=== PATIENT | female | born 2000 | race African-American/Black ===

== ENCOUNTER 2024-04-09 10:43 | Observation (INO) | payer OTHER, SELFPAY ==
[2024-04-09] VITALS (45 sets, daily range): BP systolic 90–119; BP diastolic 51–77; PULSE 77–103; O2SAT 98–100; BMI 31.1
[2024-04-09] MEDS: Please add drug allergy info to patient profile. XX (11:14)
[2024-04-09] MEDS: TERBUTALINE SULFATE 1 MG/ML VIAL 0.25 MG SUB-Q (11:25)
[2024-04-09] MEDS: LACTATED RINGERS 1,000 ML 999 ML IV CONT (11:26)
[2024-04-09 13:03] LABS: Add Urine Microscopic? NO; Appearance Urine Clear (Clear); Bilirubin Urine Negative (Negative); Blood Urine Negative (Negative); Color Urine Yellow (Yellow); Glucose Urine UA Negative (Negative); Ketones Urine 3+ mg/dL (Negative); Leukocyte Esterase Ur Negative LEU/UL (Negative); Nitrate Urine Negative (Negative); Protein Urine Negative (Negative); Specific Grav Ur 1.015 (1.001-1.035); pH Urine 6.5 (5.0-9.0)
--- NOTE | 2024-04-09 13:22 | PC.NURSE ---
Addendum entered by Desire Schreiber RN 04/09/24 13:40: RN also reported lab results to OB. Order changed from LR to [id number]. Original Note: 1320: RN phoned Dr. Norris to inform him of recent SVE, contraction pattern, and FHTs. Orders to give another liter bolus of LR, and 10 of Procardia.
[2024-04-09] MEDS: ACETAMINOPHEN 500 MG TABLET 1000 MG PO (13:34)
[2024-04-09] MEDS: DEXTROSE 5%/LACTATED RINGERS 1,000 ML 999 ML (13:35)
[2024-04-09] MEDS: NIFEdipine 10 MG CAPSULE PO (13:36)
--- NOTE | 2024-04-09 15:22 | OBADM ---
This patient, Delmis Carlson, admitted to the OB room Labor/Delivery/Recovery 119 for observation. Patient/family oriented to hospital policies and general routines including ID bracelet, bed and alarms, visiting hours, pain management, procedures, bathroom and other care routines, personal items, smoking policy, room service/diet, and visiting hours. Patient/Family are encouraged to report perceived risks to care and to ask questions if they do not understand what they are told or what they should do.
--- NOTE | 2024-04-09 16:21 | PC.NURSE ---
1512: RN phoned Dr. Norris to inform him that patient's contractions pattern has decreased, patient states she feels better and is rating her pain a 0/10. Orders to discharge patient home with instructions on when to return to the hospital.
--- NOTE | 2024-04-09 16:24 | PC.NURSE ---
1107: RN informed Dr. Norris of contraction pattern, pain of 8 out of 10, recent SVE and FHTs. Orders to give bolus of LR and give Terbutaline.
--- NOTE | 2024-05-01 20:05 | P.PNOB_ITS ---
OB - Triage/Final Diagnosis Visit Information Comments/Additional reasons for admission: I have assessed the risk for this patient, Delmis Carlson, and determined that she would benefit from observation care. Evaluation Laboratory results: Laboratory Tests 04/09/24 04/09/24 11:23 12:48 Urine Color Yellow Urine Appearance Clear Urine pH 6.5 Ur Specific [place] 1.015 Urine Protein Negative Urine Glucose (UA) Negative Urine Ketones 3+ H Ur Blood (Man) Negative Urine Nitrate Negative Urine Bilirubin Negative Urine Urobilinogen 1.0 Leukocyte Esterase Rfl Negative Blood Type O Positive Antibody Screen Negative Final Diagnosis (1) False labor: Code(s): O47.9 - False labor, unspecified Status: Acute
== END 2024-04-09 15:30 | disposition home or self-care (01) ==
PROVIDERS: Admitting Provider Obstetrics & Gynecology; Visit Provider Obstetrics & Gynecology
DX: O47.9 False labor, unspecified (principal); Z3A.00 Weeks of gestation of pregnancy not specified
CPT/HCPCS: 36415; 81003; 86850; 86900; 86901; 96372; 96374; A9270; G0378; G0379; J3105; J7120; J7121

== ENCOUNTER 2024-04-10 07:07 | Inpatient (IN) | payer OTHER, SELFPAY ==
[2024-04-10] VITALS (51 sets, daily range): BP systolic 81–136; BP diastolic 42–86; PULSE 62–99; RESP 13–23; TEMP 36.2–36.8; O2SAT 91–100; BMI 31.4
--- NOTE | 2024-04-10 07:07 | LDADM ---
This patient, Delmis Carlson, was admitted to Labor/Delivery/Recovery 120 on 04/10/24 at 07:07. Plans for labor, pain management and were discussed with patient. Patient/family oriented to hospital policies and general routines including ID bracelet, bed and alarms, visiting hours, pain management, procedures, bathroom and other care routines, personal items, smoking policy, room service/diet and guest tray routines, security routines, and visiting hours. Patient/Family are encouraged to report perceived risks to care and to ask questions if they do not understand what they are told or what they should do. See OBIX for further documentation.
--- NOTE | 2024-04-10 07:55 | PM.IMHP ---
H&P: HPI History of Present Illness Date/Time: 04/10/24 07:55 Chief Complaint: Labor Narrative: 23-year-old multiparous female with previous delivery presents in labor and with ruptured membranes. She would like to repeat . We have agreed to move forward with repeat delivery. The patient understands the details of the procedure. The procedure has been explained in detail. She understands the risks. She understands that injuries may occur that result in hospitalization, more surgery, and severe illness. She understands risk of hemorrhage and infection. She denies any chest pain or shortness of breath. She denies any nausea, vomiting, fever, chills. Review of Systems Review of Systems: All systems reviewed & are unremarkable except as noted in HPI and below Constitutional: Constitutional: Denies chills, Denies fatigue, Denies fever(s) and Denies weakness Eyes: Eyes: Denies blurry vision, Denies change in vision, Denies loss of peripheral vision, Denies loss of vision, Denies other visual disturbances and Denies eye pain ENT: Denies vertigo, Denies dizziness, Denies hearing loss, Denies mouth pain, Denies nasal obstruction, Denies neck mass and Denies neck pain Cardiovascular: Cardiovascular: Denies chest pain, Denies diaphoresis, Denies syncope, Denies leg edema and Denies dyspnea Respiratory: Respiratory: Denies chest congestion, Denies cough, Denies hemoptysis, Denies dyspnea and Denies wheezing Gastrointestinal: Gastrointestinal: Denies abdominal pain, Denies constipation, Denies diarrhea, Denies nausea and Denies vomiting Genitourinary: Genitourinary: Denies hematuria, Denies change in libido, Denies nocturia, Denies genital lesions, Denies flank pain and Denies urinary urgency Musculoskeletal: Musculoskeletal: Denies abnormal gait, Denies back pain, Denies myalgias, Denies arthralgias, Denies joint swelling, Denies muscle weakness and Denies neck pain Integumentary/Breasts: Skin/Breast: Denies swelling, Denies breast pain, Denies breast mass, Denies dry skin, Denies nipple discharge, Denies unusual bruising and Denies jaundice Neurologic: Denies Neuro-related abnormal movements, Denies Abnormal speech present, Denies abnormal gait, Denies behavioral changes, Denies confusion, Denies vertigo, Denies dizziness, Denies syncope, Denies loss of vision, Denies memory loss, Denies convulsions and Denies weakness Psychiatric: Psychiatric: Denies abnormal sleep pattern, Denies behavioral changes, Denies change in libido, Denies confusion, Denies depression, Denies anhedonia and Denies memory loss Endocrine: Endocrine: Reports no additional endocrine complaints, Denies change in libido and Denies fatigue Hematologic/Lymphatic: Hematologic/Lymphatic: Reports no additional hematologic/lymphatic complaints Allergic/Immunologic: Allergic/Immunologic: Reports no additional allergic/immunologic complaints and Denies wheezing PMFSH Social History Social History Smoking status: Former smoker Do You Feel Safe in your Home?: Yes Lack of Transportation: No Lack of Food: Never True Current Housing: I Have Housing Concerned About Future Housing: No Difficulty Paying Gas/Electric Bills: No Difficulty Paying for Meds: No Currently Unemployed: No Education: Don't Know Difficulty w/ Childcare or Family Care: No Meds Home Medications and Allergies Home Medications Medication Instructions Recorded Confirmed Type [id number] 1 mg 1 tablet PO DAILY 04/09/24 04/09/24 History tablet Allergies Allergy/AdvReac Type Severity Reaction Status Date / Time No Known Allergies Allergy Verified 04/09/24 11:14 Vital Signs Vital Signs - 24 hr 04/10/24 07:30 04/10/24 07:45 Pulse Rate 82 88 Blood Pressure 136/85 104/86 Exam Const: General: cooperative, healthy appearing, comfortable and no acute distress Orientation/consciousness: oriented to person, orient
[2024-04-10] MEDS: ACETAMINOPHEN 500 MG TABLET 1000 MG PO (08:00)
[2024-04-10] MEDS: LACTATED RINGERS 1,000 ML 125 ML IV CONT ×2 (08:04→09:38)
[2024-04-10] MEDS: AZITHROMYCIN 500 MG/NS 250 ML 500 MG/250 ML BAG 250 MG IVPB (08:14)
[2024-04-10 08:16] LABS: Basophils Percent Auto 0.4 % (0.2-1.2); Eosinophils Absolute Auto 0.2 K/mm3 (0-0.3); Eosinophils Percent Auto 1.5 % (0-4.4); Hemoglobin 11.2 g/dL (12.0-15.0); Immature Granulocyte Absolute 0.03 K/mm3 (0.00-0.031); Immature Granulocyte Percent A 0.3 % (0-0.5); Lymphocytes Absolute Auto 1.97 K/mm3 (0.9-3.2); Lymphocytes Percent Auto 19.3 % (18.3-44.2); Mean Corpuscular HGB Conc 32.9 g/dl (32-36); Mean Corpuscular Hemoglobin 28.2 pg (26-34); Mean Corpuscular Volume 85.6 fl (80-100); Mean Platelet Volume 10.3 fl (7.4-10.4); Monocytes Absolute Auto 0.6 K/mm3 (0.1-0.6); Monocytes Percent Auto 6.1 % (2.6-8.5); Neutrophils Absolute Auto 7.4 K/mm3 (1.3-6.7); Neutrophils Percent Auto 72.4 % (45.5-73.1); Platelet Count Result 265 k/mm3 (150-375); Red Blood Count 3.97 M/mm3 (4.2-5.4); Red Cell Distribution Width 13.9 % (11.5-14.5); White Blood Count 10.2 K/mm3 (4.5-10.0)
[2024-04-10 09:06] LABS: HIV 1/2 Ab P24 Ag Result Negative (Negative)
[2024-04-10] MEDS: ONDANSETRON INJ 4 MG/2 ML VIAL IV PUSH (09:15)
[2024-04-10] MEDS: FAMOTIDINE 20 MG/2 ML VIAL IV PUSH (09:15)
[2024-04-10] MEDS: ceFAZolin 2 GM/D5W 50 ML 2 GM/50 ML BAG IVPB (10:13)
--- NOTE | 2024-04-10 11:33 | W.PM.OBCSD ---
OB - Delivery Note Procedure Delivery date: 04/10/24 Pre-op diagnosis: Previous Delivery Post-op Diagnosis: Same Procedure Performed: Repeat Surgeon: Tong Norris MD Anesthesia type: Epidural Description of Procedure/Findings: The patient was taken the operating room.? She was prepped and draped in dorsal supine position with a leftward tilt.? This was done after spinal anesthetic was applied.? A low-transverse skin incision was made and carried down till of the fascia with the knife.? The fascial incision was made with the knife.? The fascial incision was extended laterally with Weber scissors.? The fascia was tented upward superiorly and inferiorly the rectus muscles were dissected off bluntly.? The rectus muscles were the midline.? The preperitoneal fat and peritoneum were dissected open bluntly at the superior aspect of the rectus muscles.? The peritoneal incision was extended superior and inferior with good position of bladder.? The uterine incision was made with a scalpel down to the level of the amniotic cavity.? The amniotic cavity was entered bluntly.? The was delivered.? The cord was clamped and cut and the infant was handed off to waiting pediatric staff.? Cord bloods were obtained.? The placenta was removed manually.? The uterus was exteriorized.? The uterus was cleared of all clots, debris and membranes.? The uterus was closed in 0 Vicryl running lock fashion.? An imbricating over a was placed along the incision line as well.? The uterus was returned to the abdomen.? The gutters were cleared of all clots and debris.? The fascia was closed with 0 Vicryl running fashion.? The subcutaneous tissue was irrigated pinpoint bleeders were cauterized.? The skin was closed with subcuticular absorbable lalo.? The skin incision line was covered with glue.? The patient tolerated the procedure well.? She has taken recovery room in stable condition.? Sponge lap and needle counts were correct x2.?
[2024-04-10 11:53] LABS: Rapid Plasma Reagin Non-Reactive (NonReactive)
--- NOTE | 2024-04-10 12:04 | WPDANESEPPF ---
Anes - Initial Pre Proc Eval Procedure: Operation Date: 04/10/24 10:00 Proposed Procedures p Repeat Section - Tong Norris MD Date/Time: 04/10/24 12:04 Surgeon: Tong Norris MD Pre Op Diagnosis: C/S Patient Data Age: 23 Gender: F Height: 1.5 m Weight: 70.5 kg Last Vital Signs Temp 97.1 F L 04/10/24 11:30 Pulse 66 04/10/24 11:45 Resp 20 04/10/24 11:45 BP 104/70 04/10/24 11:45 Pulse Ox 100 04/10/24 12:03 O2 Del Method Room Air 04/10/24 11:45 Allergies Allergy/AdvReac Type Severity Reaction Status Date / Time No Known Allergies Allergy Verified 04/09/24 11:14 Laboratory Tests 04/10/24 08:08 WBC 10.2 H K/mm3 (4.5-10.0) RBC 3.97 L M/mm3 (4.2-5.4) Hgb 11.2 L g/dL (12.0-15.0) Hct 34.0 L % (37.0-47.0) MCV 85.6 fl (80-100) MCH 28.2 pg (26-34) MCHC 32.9 g/dl (32-36) RDW 13.9 % (11.5-14.5) Plt Count 265 k/mm3 (150-375) MPV 10.3 fl (7.4-10.4) Immature Gran % (Auto) 0.3 % (0-0.5) Neut % (Auto) 72.4 % (45.5-73.1) Lymph % (Auto) 19.3 % (18.3-44.2) Blair % (Auto) 6.1 % (2.6-8.5) Eos % (Auto) 1.5 % (0-4.4) Baso % (Auto) 0.4 % (0.2-1.2) Lymph # (Auto) 1.97 K/mm3 (0.9-3.2) Blair # (Auto) 0.6 K/mm3 (0.1-0.6) Eos # (Auto) 0.2 K/mm3 (0-0.3) Baso # (Auto) 0.0 K/mm3 (0.0-0.1) Abs Immat Gran (auto) 0.03 K/mm3 (0.00-0.031) Absolute Neuts (auto) 7.4 H K/mm3 (1.3-6.7) Absolute Nucleated RBC 0.000 K/mm3 (0.0-0.012) Nucleated RBC % 0.0 % (0.0-0.2) RPR Non-reactive (NonReactive) HIV 1&2 Ab/P24 Ag 4thGn Negative (Negative) Patient hx anesthesia problems: none Family hx anesthesia problems: none Results Review: All pre-operative results and documents have been reviewed as part of the pre-operative evaluation. [facility] Social History Social History Years smoked: 3 Smoking status: Former smoker Substance use: current Last use: 01/2024 Do You Feel Safe in your Home?: Yes Lack of Transportation: No Lack of Food: Never True Current Housing: I Have Housing Concerned About Future Housing: No Difficulty Paying Gas/Electric Bills: No Difficulty Paying for Meds: No Currently Unemployed: No Education: High School Diploma/GED Difficulty w/ Childcare or Family Care: No Spiritual care concerns: No Anes - Eval Final PreProcedure Day of Procedure 04/10/24 12:04 Patient weight: normal Heart: regular rate and rhythm Lungs: clear to auscultation Airway: Mallampati scale class II Neurological: alert and oriented Last oral intake: >/= 8 hours ASA classification: III Emergent: no Anesthetic plan: proceed Anesthesia type and monitoring: regional spinal and standard monitoring Results Review: All pre-operative results and documents have been reviewed as part of the pre-operative evaluation. Baseline asthma stable, plts 265. Pt w prev C section, presented w ruptured membranes and now for repeat C section. Discussed w Dr Norris who will do this C section after he finishes his first elective case in the OR. This note entered late due to being in near continuous clinical care w pts until this time. Informed Consent: The patient's anesthetic plan and its attendant risks and benefits were discussed with the patient/family/POA. Questions were solicited and answers provided to the satisfaction of the patient/family/POA.
[2024-04-10] MEDS: OXYTOCIN 30 UNITS/NS 500 ML 30 UNITS/500 ML BAG 125 UNITS IV CONT (12:52)
--- NOTE | 2024-04-10 13:50 | PC.NURSE ---
Patient transferred to post room #277 via stretcher. Support person present. Oriented to unit, room, information board, rooming in, admission packet and security measures. Patient verbalizes understanding.
[2024-04-10] MEDS: LIDOCAINE 5% PATCH 1 PATCH TRANSDERM (14:46)
[2024-04-10] MEDS: SIMETHICONE 80 MG TAB.CHEW PO (16:53)
[2024-04-10] MEDS: DOCUSATE SODIUM 100 MG CAPSULE PO (16:53)
[2024-04-10] MEDS: ACETAMINOPHEN 325 MG TABLET 650 MG PO (16:53)
[2024-04-10] MEDS: KETOROLAC 15 MG/ML VIAL (*BKC) IV PUSH (16:54)
[2024-04-11 04:15] VITALS: BP 104/55; PULSE 85; RESP 16; TEMP 36.9; O2SAT 99
[2024-04-11] MEDS: KETOROLAC 15 MG/ML VIAL (*BKC) IV PUSH (04:41)
[2024-04-11] MEDS: LIDOCAINE 5% PATCH 1 PATCH TRANSDERM ×2 (04:41→16:56)
[2024-04-11] MEDS: ACETAMINOPHEN 325 MG TABLET 650 MG PO ×4 (04:41→23:40)
[2024-04-11 05:36] LABS: Basophils Percent Auto 0.2 % (0.2-1.2); Eosinophils Absolute Auto 0.1 K/mm3 (0-0.3); Eosinophils Percent Auto 0.5 % (0-4.4); Hematocrit 27.9 % (37.0-47.0); Hemoglobin 9.2 g/dL (12.0-15.0); Immature Granulocyte Absolute 0.09 K/mm3 (0.00-0.031); Immature Granulocyte Percent A 0.6 % (0-0.5); Lymphocytes Absolute Auto 2.19 K/mm3 (0.9-3.2); Lymphocytes Percent Auto 14.7 % (18.3-44.2); Mean Corpuscular Volume 85.1 fl (80-100); Mean Platelet Volume 10.6 fl (7.4-10.4); Monocytes Absolute Auto 1.3 K/mm3 (0.1-0.6); Monocytes Percent Auto 8.6 % (2.6-8.5); Neutrophils Absolute Auto 11.2 K/mm3 (1.3-6.7); Neutrophils Percent Auto 75.4 % (45.5-73.1); Platelet Count Result 227 k/mm3 (150-375); Red Blood Count 3.28 M/mm3 (4.2-5.4); Red Cell Distribution Width 13.8 % (11.5-14.5); White Blood Count 14.9 K/mm3 (4.5-10.0)
[2024-04-11] MEDS: HYDROcodone/acetaminophen (*CRX) 5-325 MG TABLET 1 TAB PO ×2 (07:43→19:30)
[2024-04-11] MEDS: SIMETHICONE 80 MG TAB.CHEW PO ×2 (07:44→16:54)
[2024-04-11] MEDS: MULTIVIT/MIN/PREN/FOL AC/IRON TABLET 1 TAB PO (07:44)
[2024-04-11] MEDS: DOCUSATE SODIUM 100 MG CAPSULE PO ×2 (07:46→16:54)
[2024-04-11] MEDS: POLYSACCHARIDE IRON COMPLEX 150 MG CAPSULE PO ×2 (07:46→16:54)
[2024-04-11 07:55] VITALS: BP 103/62; PULSE 85; RESP 18; TEMP 36.6; O2SAT 100
--- NOTE | 2024-04-11 10:16 | PM.OBPNVD ---
OB - PN: Subj Subjective Date/time seen: 04/11/24 10:16 Patient comments: no complaints, pain well controlled, tolerating diet and flatus present OB - PN: Obj Data Labs 04/11/24 04:20 Labs: Laboratory Results - last 24 hr 04/10/24 04/11/24 08:08 04:20 WBC 14.9 H RBC 3.28 L Hgb 9.2 L Hct 27.9 L MCV 85.1 MCH 28.0 MCHC 33.0 RDW 13.8 Plt Count 227 MPV 10.6 H Immature Gran % (Auto) 0.6 H Neut % (Auto) 75.4 H Lymph % (Auto) 14.7 L [place] % (Auto) 8.6 H Eos % (Auto) 0.5 Baso % (Auto) 0.2 Lymph # (Auto) 2.19 [place] # (Auto) 1.3 H Eos # (Auto) 0.1 Baso # (Auto) 0.0 Abs Immat Gran (auto) 0.09 H Absolute Neuts (auto) 11.2 H Absolute Nucleated RBC 0.000 Nucleated RBC % 0.0 RPR Non-reactive OB - PN A/P Plan day: 1 Comments: Post Op LTCS - no problems, routine recovery Time Spent With Patient Time: Total time spent is greater than 50% in coordination of care (as documented) at patient's floor/unit and/or counseling patient: Exam Const: General: cooperative, healthy appearing, comfortable and no acute distress Resp: Auscultation: no crackles, no rales, no rhonchi and no wheezes Cardio: Rhythm: regular rhythm Heart sounds: no click and no murmurs GI: Inspection: non-distended Auscultation: normal bowel sounds Extrem: General: normal to inspection, no pedal edema and no calf tenderness
[2024-04-11] MEDS: IBUPROFEN 600 MG TABLET PO ×3 (10:37→23:40)
--- NOTE | 2024-04-11 11:48 | PC.NURSE ---
Patient requests IV out at 1030 am.
--- NOTE | 2024-04-11 12:39 | WPDANLDPN2 ---
Anes-Prog Note L&D Date/Time: 04/11/24 12:39 Comfortable throughout: section Neuraxial method: spinal Epidural/Spinal procedure site: clean & non-tender Neuro status: Neuro function grossly intact. Cardiovascular status: normal Respiratory status: normal Airway patency: baseline Mental status: baseline Post-Op hydration status: normal Vital Signs: Last Vital Signs Temp 36.6 C 04/11/24 07:55 Pulse 85 04/11/24 07:55 Resp 18 04/11/24 07:55 BP 103/62 04/11/24 07:55 Pulse Ox 100 04/11/24 07:55 O2 Del Method Room Air 04/11/24 08:00 Pain score (VAS): 2/10 I/O: Intake & Output 04/10/24 04/11/24 04/11/24 23:59 07:59 15:59 Intake Total 400 200 Output Total 300 Balance 100 200 Post-procedural complaints: none Patient feedback: Patient satisfied with anesthetic care.
--- NOTE | 2024-04-11 12:40 | WPDANLDNPN2 ---
Anes-Prog Note L&D-Neuraxial Date/Time: 04/11/24 12:40 Neuraxial medications: intrathecal PF morphine Opiod-related complaints: pruritis mild, no treatment Patient feedback: Patient satisfied with post-operative pain management.
[2024-04-11 19:31] VITALS: BP 110/65; PULSE 88; RESP 14; TEMP 36.7; O2SAT 100
[2024-04-12] MEDS: ACETAMINOPHEN 325 MG TABLET 650 MG PO (05:53)
[2024-04-12] MEDS: IBUPROFEN 600 MG TABLET PO (05:53)
--- NOTE | 2024-04-12 07:28 | PM.OBPNVD ---
OB - PN: Subj Subjective Date/time seen: 04/12/24 07:28 Interval history: pp day 2 desires d/c home bottle feeding OB - PN: Obj Data Labs 04/11/24 04:20 OB - PN A/P Plan day: 2 Plan: routine care and discharge home Time Spent With Patient Time: Total time spent is greater than 50% in coordination of care (as documented) at patient's floor/unit and/or counseling patient: Review of Systems Review of Systems: All systems reviewed & are unremarkable except as noted in HPI and below Exam Const: General: cooperative and healthy appearing Resp: Effort & Inspection: normal respiratory effort Skin: General skin exam: normal color
--- NOTE | 2024-04-12 07:34 | PM.OBDSVD ---
DS: Admitting Diagnosis Discharge Date 04/12/24 Admitting Diagnosis section DS: Discharge Diagnosis Discharge Diagnosis (1) Delivery by elective section: Code(s): O82 - Encounter for delivery without indication Status: Acute OB - DS: Summary OB Procedures : None OB Procedures Intrapartum: OB Procedures: : None Peripartum Data Procedures: Procedures Operation Date: 04/10/24 10:00 Actual Procedure Side Surgeon p Repeat Section Not Applicable Tong Norris MD Time Spent with Patient Time attestation: Total time spent providing and/or coordinating discharge services: Discharge Plan Discharge Attending physician on discharge: Tong Norris Discharging Clinician: Grazyna King Patient Disposition: Home, Self-Care Activity: pelvic rest Diet: regular Patient Instructions: Antibiotic Form Stand Alone Forms: General Discharge Information Follow-up/Referrals: Tong Norris MD [Physician] - 1 Week Discharge Medications: New hydrocodone-acetaminophen 5-325 mg Tablet 1 tablet PO Q3H PRN (Reason: Breakthrough Pain Rated 4-6) Qty: 20 0RF Date of admission: 04/10/24 07:07 Primary Care Provider: UNKNOWN,DOCTOR Admitting Provider: Tong Norris Attending physician on admission: Tong Norris Condition: Stable
[2024-04-12 07:50] VITALS: BP 116/72; PULSE 85; RESP 16; TEMP 36.6; O2SAT 100
[2024-04-12] MEDS: HYDROcodone/acetaminophen (*CRX) 5-325 MG TABLET 1 TAB PO (08:18)
[2024-04-12] MEDS: SIMETHICONE 80 MG TAB.CHEW PO (08:18)
[2024-04-12] MEDS: DOCUSATE SODIUM 100 MG CAPSULE PO (08:19)
[2024-04-12] MEDS: MULTIVIT/MIN/PREN/FOL AC/IRON TABLET 1 TAB PO (08:19)
[2024-04-12] MEDS: POLYSACCHARIDE IRON COMPLEX 150 MG CAPSULE PO (08:19)
[2024-04-12] MEDS: TETANUS,DIPHTHERIA,AC PERTUSSIS ADULT (0.5 ML) BOOSTRIX IM (08:20)
== END 2024-04-12 11:40 | disposition home or self-care (01) | DRG 540 ==
LOC: ANHLDR 10:50 → ANHOB2 13:50
PROVIDERS: Admitting Provider Obstetrics & Gynecology; Visit Provider Obstetrics & Gynecology
PROC: (CPT 59514; principal; 2024-04-12 07:30)
DX: O34.219 Maternal care for unspecified type scar from previous cesarean delivery (principal); Z87.891 Personal history of nicotine dependence; Z3A.38 38 weeks gestation of pregnancy; Z37.0 Single live birth
CPT/HCPCS: 36415; 85025; 86592; 86703; 90715; A9270; G0432; J0456; J0690; J1885; J2210; J2274; J2371; J2405; J2590; J7120